=== PATIENT | female | born 1995 | race Hispanic/Latino ===

== ENCOUNTER 2017-02-03 15:42 | Outpatient (CLI) | payer MEDICAID ==
[2017-02-03] MEDS ORDERED: LACTATED RINGERS 500 ML IV ONE (15:56)
[2017-02-03 16:04] VITALS: BP 120/64
[2017-02-03 17:01] LABS: Bacteria,Urine 1+ /HPF (Negative); Bilirubin,Urine NEG (Negative); Blood,Urine SM (Negative); Ketones,Urine NEG (Negative); Leukocyte Esterase,Urine LG (Negative); Mucus,Urine 2+ /HPF; Nitrite,Urine NEG (Negative)
--- NOTE | 2017-02-04 10:42 | Ultrasound Report ---
ULTRASOUND OB LIMITED History: Vaginal bleeding Technique: Transabdominal ultrasound with Doppler interrogation. Gestation: Single Position: Transverse, head to maternal right Amniotic Fluid: Normal WHITNEY = 14.4 cm Placenta: Anterior Placental Grade: 0 Heart Rate: 149 BPM IMPRESSION: No evidence for abruption.
== END 2017-02-03 17:42 | disposition home or self-care (01) ==
LOC: TRG 15:42
PROVIDERS: ATTEND Obstetrics & Gynecology
DX: O46.92 Antepartum hemorrhage, unspecified, second trimester (principal); O99.332 Smoking (tobacco) complicating pregnancy, second trimester; O32.2XX0 Maternal care for transverse and oblique lie, not applicable or unspecified; O47.02 False labor before 37 completed weeks of gestation, second trimester; Z3A.27 27 weeks gestation of pregnancy
CPT/HCPCS: 76815; 81001

== ENCOUNTER 2017-03-15 12:45 | Outpatient (CLI) | payer MEDICAID ==
[2017-03-15] MEDS ORDERED: LACTATED RINGERS 500 ML IV ONE (13:35)
== END 2017-03-15 14:27 | disposition home or self-care (01) ==
LOC: EDBD → TRG 12:45
PROVIDERS: ATTEND Obstetrics & Gynecology
DX: O99.333 Smoking (tobacco) complicating pregnancy, third trimester (principal); O47.03 False labor before 37 completed weeks of gestation, third trimester; Z3A.32 32 weeks gestation of pregnancy
CPT/HCPCS: 59025

== ENCOUNTER 2017-04-08 19:46 | Outpatient (CLI) | payer MEDICAID ==
[2017-04-08 20:07] VITALS: BP 121/76
[2017-04-08] MEDS ORDERED: VISTARIL PO PRN (21:16)
== END 2017-04-08 21:52 | disposition home or self-care (01) ==
LOC: TRG 19:46 → EDBD 19:46 → TRG 19:47
PROVIDERS: ATTEND Obstetrics & Gynecology
DX: O99.333 Smoking (tobacco) complicating pregnancy, third trimester (principal); O47.1 False labor at or after 37 completed weeks of gestation; Z3A.37 37 weeks gestation of pregnancy
CPT/HCPCS: Q0177

== ENCOUNTER 2017-04-17 17:01 | Outpatient (CLI) | payer MEDICAID ==
[2017-04-17 19:36] VITALS: BP 133/63
[2017-04-17 20:17] LABS: Basophils % (Auto) 0.2 % (0.0-1.8); Eosinophils # (Auto) 0.1 K/mm3 (0.0-0.4); Eosinophils % (Auto) 1.1 % (0.0-4.3); Hematocrit 31.5 % (30.3-42.9); Hemoglobin 10.6 gm/dl (10.1-14.3); Lymphocytes # (Auto) 2.1 K/mm3 (1.2-5.4); Lymphocytes % (Auto) 19.4 % (13.4-35.0); Mean Corpuscular HGB Conc 34 % (30-34); Mean Corpuscular Hemoglobin 28 pg (28-32); Mean Corpuscular Volume 82 fl (79-97); Monocytes # (Auto) 0.8 K/mm3 (0.0-0.8); Monocytes % (Auto) 7.6 % (0.0-7.3); Platelet Count 231 K/mm3 (140-440); Red Blood Count 3.85 M/mm3 (3.65-5.03)
[2017-04-17] MEDS ORDERED: PEPCID PO ONE (20:19)
[2017-04-17 20:30] LABS: INR 0.97 (0.87-1.13)
[2017-04-17 20:31] LABS: Partial Thromboplastin Time 27.5 Sec. (24.2-36.6)
--- NOTE | 2017-04-18 01:46 | Ultrasound Report ---
FINAL REPORT EXAM: US OB > = 14 WEEKS FETUS HISTORY: BLEEDING, LOOK AT PLACENTA FOR ABRUPTION COMPARISON: None available. TECHNIQUE: Several real-time grayscale and color Doppler images were obtained. FINDINGS: Single live IUP. Estimated gestational age 36 weeks 4 days. Estimated delivery date May 11, 2017. Estimated weight 3085 grams. WHITNEY 11.6 centimeters within normal limits. heart rate 133 beats per minute. position cephalic. Placenta location anterior. No placenta previa. No retroplacental fluid collection demonstrated. There vessels extending along the posterior margin the placenta, expected finding. No evidence of abruption by ultrasound. The cervix is closed measures 3.5 centimeters in length. BPD 8.4 centimeters 34 weeks 0 days. Head circumference 32.9 centimeters 37 weeks 3 days. Abdominal circumference 33.5 centimeters 37 weeks 3 days. Femoral length 7.3 centimeters 37 weeks 3 days. Visualized heart, stomach, urinary bladder, kidneys, cerebral ventricles are grossly unremarkable. Three-vessel umbilical cord with abdominal insertion. IMPRESSION: Single live IUP. Estimated gestational age 36 weeks 4 days. Estimated delivery date May 11, 2017. No or placental abnormality demonstrated. position vertex. Placenta previa or placental abruption demonstrated on today's study.
--- NOTE | 2017-04-18 01:47 | Ultrasound Report ---
FINAL REPORT EXAM: US OB BPP WO NON-STRESS HISTORY: BLEEDING, LOOK AT PLACENTA FOR ABRUPTION COMPARISON: Ob ultrasound from the same date. TECHNIQUE: Several real-time grayscale and color Doppler images were obtained. FINDINGS: There is normal breathing movements, movements, posterior tone and qualitative amniotic fluid volume. heart rate 133 beats per minute. position vertex. IMPRESSION: Biophysical profile score 8/8.
== END 2017-04-17 20:58 | disposition home or self-care (01) ==
LOC: TRG 17:01
PROVIDERS: ATTEND Obstetrics & Gynecology Gynecology
DX: O46.93 Antepartum hemorrhage, unspecified, third trimester (principal); O99.333 Smoking (tobacco) complicating pregnancy, third trimester; O47.03 False labor before 37 completed weeks of gestation, third trimester; Z3A.36 36 weeks gestation of pregnancy
CPT/HCPCS: 36415; 59025; 76805; 76819; 85025; 85610; 85730; 86850; 86900; 86901